=== PATIENT | male | born 1985 | race Caucasian/White ===

== ENCOUNTER 2024-09-05 17:45 | Emergency (ER) | payer MEDICARE, MEDICAID, SELFPAY ==
[2024-09-05 17:49] VITALS: BP 112/81; PULSE 112; TEMP 36.7; O2SAT 95; BMI 36.5
--- NOTE | 2024-09-05 18:11 | ED.GENADUL1 ---
HPI HPI - General Adult General Chief complaint: Skin/Abscess/Foreign Body Stated complaint: HEMORRHOIDS Time Seen by Provider: 09/05/24 17:57 Source: patient Mode of arrival: walk-in Limitations: no limitations History of Present Illness HPI narrative: 39-year-old male was brought to the emergency room for evaluation of hemorrhoids. Patient has a history of MRDD and has a caregiver here with him. States he has become obsessed since he is learned he had a hemorrhoid. He was seen at another facility 2 days ago and they called in a prescription to a pharmacy that is not open. They are here looking for a prescription for his hemorrhoid. Hemorrhoid small amount of bleeding noted no profuse bleeding Related Data Previous Rx's ?Medication ?Instructions ?Recorded pramoxine 1 % topical foam 1 applic NE DAILY #15 grams 09/05/24 (Proctofoam) Allergies Allergy/AdvReac Type Severity Reaction Status Date / Time carbamazepine (From Tegretol) AdvReac Intermediate Unknown Verified 09/05/24 17:55 divalproex sodium (From AdvReac Intermediate Unknown Verified 09/05/24 17:55 Depakote) erythromycin base AdvReac Intermediate Unknown Verified 09/05/24 17:55 penicillin G AdvReac Intermediate Unknown Verified 09/05/24 17:55 Opioid HPI Opioid Management Most Recent Opioid Data: No Data to Display Review of Systems ROS Status of ROS 10 or more systems reviewed and unremarkable except as noted in history and below PFSH PFSH Social History Little interest or pleasure in doing things: not at all Feeling down, depressed, or hopeless: not at all Exam Narrative Exam Narrative: All Systems are negative except as noted/marked.All systems reviewed and otherwise negative Nurses note and vital signs reviewed and patient is not hypoxic. General: The patient appears well and in no apparent distress. Patient is resting comfortably on cart. Skin: Warm, dry, no pallor noted. There is no rash noted. Head: Normocephalic, atraumatic Eye: Normal conjunctiva, no drainage, EOMI. PERRL Ears, Nose, Mouth, and Throat: oral mucosa is moist. Nares patent. Mouth without vesicles. Ear canals patent. Tm's without Erythema gu: Hemorrhoid noted, small amount of blood noted around the anus no profuse bleeding Respiratory: Patient is in no distress, no accessory muscle use, lungs are clear to auscultation, no wheezing, rales or rhonchi Back: non-tender, no CVA tenderness bilaterally to percussion. GI: Normal bowel sounds, no tenderness to palpation, no masses appreciated. No rebound, guarding, or rigidity noted. Musculoskeletal: The patient has no evidence of calf tenderness, no pitting edema, symmetrical pulses noted bilaterally Constitutional Vital Signs, click to edit/add: Last Vital Signs Temp 98.1 F 09/05/24 17:49 Pulse 112 H 09/05/24 17:49 Resp 18 09/05/24 17:49 BP 112/81 09/05/24 17:49 Pulse Ox 95 09/05/24 17:49 O2 Del Method Room Air 09/05/24 17:49 Course Vital Signs Vital signs: Vital Signs Temperature 98.1 F 09/05/24 17:49 Pulse Rate 112 H 09/05/24 17:49 Respiratory Rate 18 09/05/24 17:49 Blood Pressure 112/81 09/05/24 17:49 Pulse Oximetry 95 09/05/24 17:49 Oxygen Delivery Method Room Air 09/05/24 17:49 Temperature 98.1 F 09/05/24 17:49 Pulse Rate 112 H 09/05/24 17:49 Respiratory Rate 18 09/05/24 17:49 Blood Pressure 112/81 09/05/24 17:49 Pulse Oximetry 95 09/05/24 17:49 Oxygen Delivery Method Room Air 09/05/24 17:49 Medical Decision Making MDM Narrative Medical decision making narrative: Presenting with rectal pain he has a known history of hemorrhoids. He was seen at the facility 2 days ago they prescribed him a medication but they are unable to get up picked up as pharmacy is only open Saturday through Saturday. We will send in prescription for Proctofoam. Caregiver states she knows how to use it and will help him with it. Patient will also instructed follow-up with primary care physician. Differential Diagnosis Differential Diagnosis: hemorrhoids Medical Records Medical records reviewed: Yes I reviewed the patient's medical records Lab Data Lab results reviewed: Yes I reviewed the patient's lab results Discharge Plan Discharge Chief Complaint: Skin/Abscess/Foreign Body Clinical Impression: Acute hemorrhoid Patient Disposition: Home, Self-Care Time of Disposition Decision: 18:08 Condition: Good Prescriptions / Home Meds: New pramoxine [Proctofoam] 1 % foam 1 applic NE DAILY Qty: 15 0RF Print Language: Syrian Instructions: Hemorrhoids (ED), Sitz Bath (DC) Referrals: FUENTES MATTHEWS [Primary Care Provider] - 1 week
== END 2024-09-05 18:15 | disposition home or self-care (01) ==
PROVIDERS: Emergency Provider Emergency Medicine; PCP Nurse Practitioner
DX: K64.9 Unspecified hemorrhoids (principal); F79 Unspecified intellectual disabilities
CPT/HCPCS: 99283